=== PATIENT | male | born 1995 | race Caucasian/White ===

== ENCOUNTER 2019-07-20 13:49 | Emergency (ER) | payer SELFPAY ==
[~2019-07-20] VITALS: Ht 170.2 cm; Wt 68.0 kg
[2019-07-20 13:58] VITALS: BP 134/65
[2019-07-20] MEDS ORDERED: predniSONE 20 MG TABLET PO ONE (14:30)
[2019-07-20] MEDS ORDERED: ALBUTEROL FS 2.5 MG/3 ML VIAL.NEB NEB ONE (14:30)
[2019-07-20] MEDS ORDERED: IPRATROPIUM NEB FS 0.5 MG/2.5 ML AMPUL.NEB NEB ONE (14:30)
[2019-07-20] MEDS ORDERED: ALBUTEROL FS 2.5 MG/3 ML VIAL.NEB ONE (14:38)
[2019-07-20] MEDS ORDERED: IPRATROPIUM NEB FS 0.5 MG/2.5 ML AMPUL.NEB ONE (14:38)
[2019-07-20] MEDS ORDERED: predniSONE 20 MG TABLET ONE (14:39)
== END 2019-07-20 15:33 | disposition home or self-care (01) ==
LOC: ER 13:49
DX: J45.909 Unspecified asthma, uncomplicated (principal)
CPT/HCPCS: 94644; 99285; J7512